=== PATIENT | female | born 1955 | race Caucasian/White ===

== ENCOUNTER 2017-04-02 13:45 | Outpatient (CLI) | payer BC ==
--- NOTE | 2017-04-02 16:28 | MRI Report ---
EXAM: MRI LUMBAR SPINE WITHOUT CONTRAST EXAM DATE: 04/02/2017 02:15 PM. CLINICAL HISTORY: 61-year-old with history prior spinal surgery presenting with low back pain radiati ng down left hip to left thigh. COMPARISON: MRI lumbar spine 06/15/2015. TECHNIQUE: Multiplanar, multisequence T1-weighted and fluid-sensitive sequences of the lumbar spine f rom T12 to S1 without contrast. Other: None. FINDINGS: Spinal Cord: The conus terminates at L2 which is low-lying but within normal limits.. No signal abnor mality in the visualized spinal cord. Alignment: [employer] imaging suggest mild levoconvex goiter curvature that appears similar to 09/2014. The re appears to be straining of the normal lumbar lordosis. No definite spondylolisthesis seen of the l umbar spine. Overall alignment appears similar to 06/15/2015. Bone Marrow: Five uoa-mbk-jubechh lumbar vertebral bodies are assumed. Postsurgical changes of L4-L5 posterior spinal instrumented fusion. The right L4 pedicle screw again starts the lateral margin of t he pedicle with tip terminating in the right paravertebral space similar to prior study. Postsurgical changes of L4-L5 and L5-S1 diskectomy with interbody fusion graft placement. Postsurgical changes of L4-L5 and L5-S1 laminectomy. There is moderate endplate edema seen at L2-L3 is likely degenerative in nature. There is moderate en dplate degenerative changes at L2-L3 with moderate loss of disk and disk desiccation. Remaining lumba r levels demonstrate minimal to mild endplate degenerative changes with minimal to mild loss of disk height. There is diffuse disk desiccation. No acute fracture or marrow replacing lesion. Disk Levels/Facets: T11-T12: Imaged only in the sagittal plane is a small left paracentral disk extrusion that appear sim ilar to 06/15/2015 there appears to be mass effect on the ventral aspect of the thecal sac without sig nificant spinal canal stenosis. Bilateral facet disease resulting in moderate to severe left neural f oraminal narrowing. Findings appear progressed from prior study. T12-L1: Small posterior disk bulge as well as a ligament inflamed thickening and articular facet dise ase producing mild spinal canal stenosis. Minimal bilateral neuroforamina narrowing. Findings appear progressed. L1-L2: Minimal posterior disk bulge as well as ligament inflamed thickening and arthritic facet disea se with minimal spinal canal stenosis. Mild right and ammo-lk-glozphto left neuroforaminal narrowing. Findings appear stable to slightly progressed. L2-L3: Small posterior disk bulge as well as ligamentum flavum thickening, arthritic facet disease, a nd prominent dorsal epidural fat producing moderate spinal canal stenosis. Severe right and moderate left neural foraminal narrowing. Findings appear stable to slightly progressed L3-L4: Slight posterior disk bulge as well as ligamentum flavum thickening and arthritic facet diseas e producing mild spinal canal stenosis. Mild bilateral neural foraminal narrowing. Findings appear st able to slightly progressed. L4-L5: Surgical decompression of the thecal sac. There is arthritic facet disease and slight posterio r disk bulge producing slight effacement of the thecal sac. Evaluation of the neuroforamina is limite d due to metallic dephasing artifact but there appears to be moderate bilateral neural foraminal narr owing. Findings are stable to slightly progressed. L5-S1: Surgical decompression of the thecal sac. No definite spinal canal stenosis. Bilateral facet d isease. Metallic dephasing artifact technically limits evaluation of the neural foramina but there ap pears to be moderate right and mild left neural foraminal narrowing that appear stable to slightly pr ogressed from prior study. Musculature: Postsurgical changes are seen within the lower paraspinal musculature with extensive fat ty atrophy. Other: Left kidney interpolar region T2 hyperintense lesion measuring up to 1.2 cm (series 701, image 206) stable from prior study likely representing renal cysts. Additional T2 hyperintense lesions are seen within the left kidney that likely represent additional renal cysts. IMPRESSION: 1. Post surgical changes of L4-L5 posterior spinal instrumented fusion, L4-L5 and L5-S1 diskectomy wi th interbody fusion graft placement, and L4-L5 and L5-S1 laminectomy. 2. Ekbm-ad-tlqzwwcw multilevel degenerative changes with ongoing degenerative changes seen at L2-L3 t hat appear stable to slightly progressed from 06/15/2015. T11-T12: No definite spinal canal stenosis. Moderate to severe left neural foraminal narrowing. T12-L1: Mild spinal canal stenosis. No significant spinal canal stenosis L1-L2: No significant spinal canal stenosis. Mild right and fleg-vv-oomkqdch left neuroforaminal narr owing. L2-L3: Moderate spinal canal stenosis. Severe right and moderate left neural foraminal narrowing. L3-L4: Mild spinal canal stenosis. Mild bilateral neural foraminal narrowing. L4-L5: No definite spinal canal stenosis. Evaluation of the neuroforamina is limited due to metallic dephasing artifact but there appears to be moderate bilateral neural foraminal narrowing. L5-S1: Canal stenosis. Metallic dephasing artifact technically limits evaluation of the neural forami na but there appears to be moderate right and mild left neural foraminal narrowing. Comment: The following findings are so common in adults without low back pain that while we report th eir presence, they must be interpreted with caution and in the context of the clinical situation. (Re kiana De La Garza et al, Spine 2001) Prevalence of findings in patients without low back pain: Disk degeneration (any evidence): 92% Disk desiccation/T2 signal loss: 83% Disk height loss: 56% Disk bulge: 64% Disk protrusion: 32% Annular tear/high intensity zone: 38% [facility] Referring Provider Line: [phone] SITE ID: [id number]
== END 2017-04-02 13:46 | disposition home or self-care (01) ==
LOC: DI 13:45
PROVIDERS: ATTEND Orthopaedic Surgery
DX: M47.896 Other spondylosis, lumbar region (principal); M51.36 Other intervertebral disc degeneration, lumbar region; M47.897 Other spondylosis, lumbosacral region; M51.24 Other intervertebral disc displacement, thoracic region; M47.894 Other spondylosis, thoracic region; Z98.1 Arthrodesis status
CPT/HCPCS: 72148

== ENCOUNTER 2017-08-29 07:15 | Outpatient (CLI) | payer BC ==
[2017-08-29 13:05] LABS: BASOPHILS % (AUTO) 0.4 %; EOSINOPHILS # (AUTO) 0.3 10^3/uL (0.0-0.7); EOSINOPHILS % (AUTO) 3.9 %; HCT - HEMATOCRIT 35.7 % (37.0-47.0); HGB - HEMOGLOBIN 12.3 g/dL (12.0-16.0); LYMPHOCYTES % (AUTO) 24.2 %; MEAN CORPUSCULAR HEMOGLOBIN 31.2 pg (27.0-31.0); MEAN CORPUSCULAR HGB CONC 34.4 g/dL (32.0-36.0); MEAN CORPUSCULAR VOLUME 90.7 fL (81.0-99.0); MEAN PLATELET VOLUME 7.4 fL (7.9-10.8); MONOCYTES # (AUTO) 0.5 10^3/uL (0.0-1.0); MONOCYTES % (AUTO) 6.5 %; NEUTROPHILS # (AUTO) 5.3 10^3/uL (1.5-6.6); NUCLEATED RED BLOOD CELLS AUTO 0.1 /100WBC; RED BLOOD COUNT 3.94 10^6/uL (4.20-5.40); UNCORRECTED WHITE BLOOD COUNT 8.1 x10^3/uL; WHITE BLOOD COUNT 8.1 x10^3/uL (4.8-10.8)
[2017-08-29 13:48] LABS: ALBUMIN/GLOBULIN RATIO 1.6 (1.0-2.2); BILIRUBIN,TOTAL 0.4 mg/dL (0.2-1.0); BUN - BLOOD UREA NITROGEN 14 mg/dL (6-20); CALCIUM 9.8 mg/dL (8.5-10.3); CARBON DIOXIDE - CO2 25 mmol/L (21-32); CHLORIDE 95 mmol/L (101-111); CHOL/HDL RATIO 3.9 (<4.4); CHOLESTEROL 236 mg/dL; CREATININE 0.7 mg/dL (0.4-1.0); GFR - MDRD 84 (>89); GLUCOSE 101 mg/dL (70-100); HDL CHOLESTEROL 60 mg/dL; LDL/HDL RATIO 2.5 (<4.4); SODIUM 132 mmol/L (135-145); TOTAL PROTEIN 7.6 g/dL (6.7-8.2); TRIGLYCERIDES 129 mg/dL; VLDL CHOLESTEROL 26 mg/dL
== END 2017-08-29 07:16 | disposition home or self-care (01) ==
LOC: LAB.F 07:15
PROVIDERS: ATTEND Nurse Practitioner Family
DX: Z00.00 Encounter for general adult medical examination without abnormal findings (principal); E55.9 Vitamin D deficiency, unspecified; E78.5 Hyperlipidemia, unspecified; Z11.59 Encounter for screening for other viral diseases
CPT/HCPCS: 36415; 80053; 80061; 82306; 82728; 85025; 86803

== ENCOUNTER 2017-10-28 11:20 | Outpatient (CLI) | payer BC ==
--- NOTE | 2017-10-29 13:23 | Mammography Report ---
DIGITAL SCREENING MAMMOGRAM: 10/28/2017 CLINICAL INDICATION: A 62-year-old with history of benign cyst excision, for screening. COMPARISON: 08/2016, 10/2014, 04/2013, 02/2012, 12/2010, 09/2009. TECHNIQUE: Routine CC and MLO projections were obtained of the breasts. FINDINGS: The breasts demonstrate heterogeneously dense fibroglandular parenchyma bilaterally. Coarse and punctate, typically benign calcifications are present. No suspicious masses, clustered microcalcifications, or regions of architectural distortion are identified. IMPRESSION: BENIGN FINDINGS. RECOMMENDATION: ROUTINE ANNUAL SCREENING UNLESS OTHERWISE CLINICALLY INDICATED. BIRADS CATEGORY 2-BENIGN FINDINGS. STANDARD QUALIFYING STATEMENTS: 1. This examination was reviewed with the aid of Computer-Aided Detection (CAD). 2. A negative or benign imaging report should not delay biopsy if clinically suspicious findings are present. Consider surgical consultation if warranted. More than 5% of cancers are not identified by imaging. 3. Dense breasts may obscure an underlying neoplasm. TD: 10/29/2017 13:22
== END 2017-10-28 11:21 | disposition home or self-care (01) ==
LOC: DI.S 11:20
PROVIDERS: ATTEND Nurse Practitioner Family
DX: Z12.31 Encounter for screening mammogram for malignant neoplasm of breast (principal)
CPT/HCPCS: 77067

== ENCOUNTER 2019-01-28 08:09 | Outpatient (CLI) | payer MEDICARE, OTHER ==
--- NOTE | 2019-01-28 12:15 | Mammography Report ---
Reason: ENCOUNTER FOR SCREENING MAMMOGRAM FOR MALIGNANT NE Procedure Date: 01/28/2019 Accession Number: [id number] / [id number] Procedure: [facility] - Screening Mammo w/Franko CPT Code: FULL RESULT: EXAM: Screening Mammo w/Franko DATE: 01/28/2019 8:49 AM CLINICAL HISTORY: Routine screening. No reported personal history of breast cancer. Family history breast cancer in paternal grandmother age 85. Prior benign breast surgery on the right. TECHNIQUE: (B) - Bilateral CC and MLO views were obtained. COMPARISON: 10/28/2017 through 05/11/2013 PARENCHYMAL PATTERN: (D) - The breasts demonstrate heterogeneously dense fibroglandular parenchyma bilaterally. FINDINGS: Bilateral breasts: Stable post surgical changes are noted in the right breast from prior excisional biopsy. There are no suspicious masses, calcifications, or areas of nonoperative distortion bilaterally. IMPRESSION: Benign findings. BI-RADS category 2. RECOMMENDATION: (ANNUAL) - Recommend routine annual screening mammography. BI-RADS CATEGORY: (2) - Benign Findings. STANDARD QUALIFYING STATEMENTS: 1. This examination was not reviewed with the aid of Computer-Aided Detection (CAD). 2. A negative or benign imaging report should not preclude biopsy if clinically suspicious findings are present. 3. Dense breasts may obscure an underlying neoplasm. 4. This examination was reviewed with the aid of 3D breast imaging (tomosynthesis).
== END 2019-01-28 08:10 | disposition home or self-care (01) ==
LOC: DI 08:09
PROVIDERS: ATTEND Internal Medicine
DX: Z12.31 Encounter for screening mammogram for malignant neoplasm of breast (principal); Z80.3 Family history of malignant neoplasm of breast
CPT/HCPCS: 77063; 77067

== ENCOUNTER 2020-11-27 12:50 | Outpatient (CLI) | payer MEDICARE, OTHER ==
--- NOTE | 2020-11-28 12:50 | Mammography Report ---
BILATERAL DIGITAL SCREENING MAMMOGRAM 3D/2D WITH EXAGGERATED CC: 11/27/2020 CLINICAL: Routine screening. Routine screening. Comparison is made to exams dated: 01/28/2019 mammogram, 10/28/2017 mammogram, 10/25/2014 mammogram, mammogram, and 12/25/2010 mammogram - [facility]. The tissue of both breast s is heterogeneously dense. This may lower the sensitivity of mammography. There are diffuse calcifications in both breasts. No significant masses, calcifications, or other findings are seen in either breast. There has been no significant interval change. IMPRESSION: BENIGN There is no mammographic evidence of malignancy. A 1 year screening mammogram is recommended. This exam was interpreted at Station ID: [id number]. NOTE: For mammograms, a report in lay terms will be sent to the patient. Approximately 15% of breast malignancies will not be visualized mammographically. In the management of a palpable breast mass, a negative mammogram must not discourage biopsy of a clinically suspicious lesion. Electronically Signed By: Hira Brown M.D. aty/:11/27/2020 14:28:42 ACR BI-RADS Category 2: Benign Finding(s) 3342F PARENCHYMAL PATTERN: (D) - The breast(s) demonstrate(s) heterogeneously dense fibroglandular nichole hagen. BI-RADS CATEGORY: (2) - 2 RECOMMENDATION: (ANNUAL) - Recommend routine annual screening mammography. [id number] 1 year screening LATERALITY: (B)
== END 2020-11-27 12:51 | disposition home or self-care (01) ==
LOC: DI.S 12:50
PROVIDERS: ATTEND Nurse Practitioner Family
DX: Z12.31 Encounter for screening mammogram for malignant neoplasm of breast (principal)

== ENCOUNTER 2021-02-27 10:07 | Day surgery (SDC) | payer MEDICARE, OTHER ==
[2021-02-27] MEDS ORDERED: LACTATED RINGERS 1,000 ML IV ONE ×2 (10:51→12:17)
[2021-02-27] MEDS ORDERED: MIDAZOLAM 2 MG/2 ML VIAL ONE ×3 (11:47→12:09)
[2021-02-27] MEDS ORDERED: fentaNYL 250 MCG/5 ML VIAL ONE (11:48)
[2021-02-27] MEDS ORDERED: ONDANSETRON 4 MG/2 ML VIAL ONE (12:05)
[2021-02-27 12:39] VITALS: BP 129/71
== END 2021-02-27 10:08 | disposition home or self-care (01) ==
LOC: SDS 10:07
PROVIDERS: ATTEND Surgery
DX: Z12.11 Encounter for screening for malignant neoplasm of colon (principal); K63.4 Enteroptosis; K63.89 Other specified diseases of intestine; K64.8 Other hemorrhoids; K64.4 Residual hemorrhoidal skin tags
CPT/HCPCS: G0121; J3010; J7120